=== PATIENT | male | born 1995 | race Caucasian/White ===

== ENCOUNTER 2017-11-26 11:23 | Emergency (ER) | payer OTHER ==
[2017-11-26 11:30] VITALS: BP 135/91
--- NOTE | 2017-11-26 11:40 | ER Report ---
History and Physical Time Seen By MD: 11:40 Hx. of Stated Complaint: Chest pain since 0 radiates up right arm into neck HPI/ROS CHIEF COMPLAINT: Chest pain HISTORY OF PRESENT ILLNESS: 21-year-old male patient presents to emergency room with complaint of chest pain. Patient states that he has been having chest pains proximal one 4:00 this morning. Patient states he has worsening pain when he takes a deep breath in. He denies having any nausea, vomiting or diarrhea. Patient states he go out and drink last night. Said that he had 5 or 6 drinks which is not uncommon for him. He states that when he got up this morning is having less pain. He did go fishing and had persistent painless fishing. He did come in today after finishing and one reevaluated. Patient states he tried lying down would seem to make the pain worse. Patient states that nothing seemed to make the pain better. He states that he does not have any worsening of his pain with activity. It does hurt more when he takes a deep breath in. REVIEW OF SYSTEMS: Respiratory: No cough, no dyspnea. Cardiovascular: As noted above Gastrointestinal: No vomiting, no abdominal pain. Musculoskeletal: No back pain. Allergies: Coded Allergies: No Known Drug Allergies (Unverified , 11/26/17) Home Meds Active Scripts Sucralfate (CARAFATE) 1 Gm/10 Ml Oral.susp, 1 GM PO QID, #500 ML Prov:HILARIO BERGMAN 11/26/17 Omeprazole (OMEPRAZOLE) 40 Mg Capsule.dr, 40 MG PO QDAY, #30 CAP Prov:HILARIO BERGMAN 11/26/17 Past Medical/Surgical History Patient has a past medical history of alcohol use. Patient denies any surgical history. Reviewed Nurses Notes: Yes Hx Substance Use Disorder: No Hx Alcohol Use: Yes (occ) Constitutional Vital Sign - Last 24 Hours 11/26/17 11:30 Temp 97.8 Pulse 87 Resp 16 B/P (MAP) 135/91 Pulse Ox 97 O2 Delivery Room Air Physical Exam General Appearance: The patient is alert, has no immediate need for airway protection and no current signs of toxicity. Respiratory: Chest is non tender, lungs are clear to auscultation. Cardiac: regular rate and rhythm Gastrointestinal: Abdomen is soft and non tender, no masses, bowel sounds normal. Musculoskeletal: Neck: Neck is supple and non tender. Extremities have full range of motion and are non tender. Skin: No rashes or lesions. DIFFERENTIAL DIAGNOSIS: After history and physical exam differential diagnosis was considered for chest pain including but not limited to myocardial ischemia, pericarditis pulmonary embolus, chest wall pain, pleural inflammation and pulmonary infectious causes. Medical Decision Making Data Points Result Diagram: 11/26/17 1141 11/26/17 1141 Laboratory Hematology Test 11/26/17 11:41 Red Blood Count 5.46 M/uL (4.00-5.60) Mean Corpuscular Volume 89.0 fL (80.0-96.0) Mean Corpuscular Hemoglobin 30.6 pg (26.0-33.0) Mean Corpuscular Hemoglobin Concent 34.4 g/dL (32.0-36.0) Red Cell Distribution Width 12.9 % (11.5-14.5) Mean Platelet Volume 8.4 fL (7.2-11.1) Neutrophils (%) (Auto) 70.1 % (39.4-72.5) Lymphocytes (%) (Auto) 18.8 % (17.6-49.6) Monocytes (%) (Auto) 7.3 % (4.1-12.4) Eosinophils (%) (Auto) 3.3 % (0.4-6.7) Basophils (%) (Auto) 0.5 % (0.3-1.4) Nucleated RBC Relative Count (auto) 0.1 /100WBC Neutrophils # (Auto) 10.8 K/uL (2.0-7.4) Lymphocytes # (Auto) 2.9 K/uL (1.3-3.6) Monocytes # (Auto) 1.1 K/uL (0.3-1.0) Eosinophils # (Auto) 0.5 K/uL (0.0-0.5) Basophils # (Auto) 0.1 K/uL (0.0-0.1) Nucleated RBC Absolute Count (auto) 0.01 K/uL Sodium Level 140 mmol/L (137-145) Potassium Level 3.9 mmol/L (3.5-5.0) Chloride Level 103 mmol/L (98-107) Carbon Dioxide Level 24 mmol/L (22-30) Blood Urea Nitrogen 14 mg/dl (9-21) Creatinine 0.80 mg/dl (0.66-1.25) Glomerular Filtration Rate Calc > 60.0 Random Glucose 108 mg/dl (75-110) Calcium Level 9.1 mg/dl (8.4-10.2) Total Bilirubin 0.7 mg/dl (0.2-1.3) Aspartate Amino Transf (AST/SGOT) 28 U/L (0-35) Alanine Aminotransferase (ALT/SGPT) 19 U/L (0-56) Alkaline Phosphatase 60 U/L (0-126) Troponin I < 0.012 ng/ml Total Protein 7.4 g/dl (6.3-8.2) Albumin 4.6 g/dl (3.5-5.0) Chemistry Test 11/26/17 11:41 White Blood Count 15.4 k/uL (4.5-11.0) Red Blood Count 5.46 M/uL (4.00-5.60) Hemoglobin 16.7 g/dL (14.0-18.0) Hematocrit 48.6 % (42.0-52.0) Mean Corpuscular Volume 89.0 fL (80.0-96.0) Mean Corpuscular Hemoglobin 30.6 pg (26.0-33.0) Mean Corpuscular Hemoglobin Concent 34.4 g/dL (32.0-36.0) Red Cell Distribution Width 12.9 % (11.5-14.5) Platelet Count 277 K/uL (150-450) Mean Platelet Volume 8.4 fL (7.2-11.1) Neutrophils (%) (Auto) 70.1 % (39.4-72.5) Lymphocytes (%) (Auto) 18.8 % (17.6-49.6) Monocytes (%) (Auto) 7.3 % (4.1-12.4) Eosinophils (%) (Auto) 3.3 % (0.4-6.7) Basophils (%) (Auto) 0.5 % (0.3-1.4) Nucleated RBC Relative Count (auto) 0.1 /100WBC Neutrophils # (Auto) 10.8 K/uL (2.0-7.4) Lymphocytes # (Auto) 2.9 K/uL (1.3-3.6) Monocytes # (Auto) 1.1 K/uL (0.3-1.0) Eosinophils # (Auto) 0.5 K/uL (0.0-0.5) Basophils # (Auto) 0.1 K/uL (0.0-0.1) Nucleated RBC Absolute Count (auto) 0.01 K/uL Glomerular Filtration Rate Calc > 60.0 Calcium Level 9.1 mg/dl (8.4-10.2) Total Bilirubin 0.7 mg/dl (0.2-1.3) Aspartate Amino Transf (AST/SGOT) 28 U/L (0-35) Alanine Aminotransferase (ALT/SGPT) 19 U/L (0-56) Alkaline Phosphatase 60 U/L (0-126) Troponin I < 0.012 ng/ml Total Protein 7.4 g/dl (6.3-8.2) Albumin 4.6 g/dl (3.5-5.0) EKG/Imaging EKG Interpretation 12 lead EKG: Rhythm: normal sinus rhythm with a ventricular rate of 80 bpm [place]: normal QRS: normal ST segments: normal Imaging 2 VIEWS CHEST INDICATION: Chest pain. COMPARISON: None available FINDINGS: Cardiomediastinal silhouette and pulmonary vessels within normal limits. There is no focal infiltrate or lobar consolidation. There is no pneumothorax or pleural effusion. No nodule. Upper abdomen is unremarkable. No acute bony abnormality. IMPRESSION: 1. No acute cardiopulmonary process. Report Dictated By: Arya Prakash at 11/26/2017 1:25 PM Report E-Signed By: Arya Prakash at 11/26/2017 1:26 PM ED Course/Re-evaluation ED Course Patient was admitted exam room, history and physical were obtained. Differential diagnoses were considered. On examination lungs are clear, heart is regular, abdomen soft nontender. I was unable to reproduce any of the pain the patient was having. A CBC, CMP, troponin, EKG, chest x-ray were done. Labs were unremarkable, patient did have a white count of 15,000 however I believe that is likely secondary to stress response. Chest x-ray was negative. Patient was given a dose of GI cocktail. Reevaluation patient states he had a slight improvement in his discomfort. States he does feel as if he has more acid down the back of his throat. With the patient's stating the pain seemed worse when he was lying down and not made worse with activity and believe that we are likely looking at an esophagitis likely secondary to alcohol consumption and reflux. I discussed my feelings with patient. We will go ahead and treat him with Carafate and Prilosec. Both were given here in the emergency room and discharge patient home at this time. He is follow-up with his primary care provider. He is return to emergency room if condition worsens. He is to limit his alcohol consumption until this clears. Patient verbalized understanding and agreement with plan. Decision to Disposition Date: Nov 26, 2017 Decision to Disposition Time: 13:37 Depart Departure Latest Vital Signs Vital Signs Date Time Temp Pulse Resp B/P (MAP) Pulse Ox O2 Delivery O2 Flow Rate FiO2 11/26/17 11:30 97.8 87 16 135/91 97 Room Air Impression: Primary Impression: Chest pain Condition: Improved Disposition: HOME OR SELF-CARE New Scripts Sucralfate (CARAFATE) 1 Gm/10 Ml Oral.susp 1 GM PO QID, #500 ML Prov: HILARIO BERGMAN 11/26/17 Omeprazole (OMEPRAZOLE) 40 Mg Capsule.dr 40 MG PO QDAY, #30 CAP Prov: HILARIO BERGMAN 11/26/17 Patient Instructions: Chest Pain (ED) Additional Instructions: Increase fluid intake. Get plenty of rest. Limit alcohol consumption. Follow up with your primary care provider. Return to the ER if condition worsens. Problem Qualifiers Primary Impression: Chest pain Chest pain type: other chest pain Qualified Codes: R07.89 - Other chest pain HILARIO BERGMAN Nov 26, 2017 11:40
[2017-11-26] MEDS ORDERED: NS(*) 0.9% 1000 ML BAG 1,000 ML IV ONE (11:46)
[2017-11-26] MEDS ORDERED: MAG HYD/AL HYD/SIMETH 30ML UDC PO ONE (11:50)
[2017-11-26] MEDS ORDERED: ASPIRIN 81 MG CHEW PO ONE (11:50)
[2017-11-26] MEDS ORDERED: LIDOCAINE 2% VISC SLN 15ML UDC PO ONE (11:50)
[2017-11-26 11:54] LABS: PLATELET COUNT, AUTOMATED 277 K/uL (150-450)
--- NOTE | 2017-11-26 13:31 | RADIOLOGY IMAGING REPORT ---
FACILITY: [facility] [place] PATIENT NAME: Leroy Chery : 1995 MR: [id number] V: [id number] EXAM DATE: ORDERING PHYSICIAN: HILARIO BERGMAN TECHNOLOGIST: Location: [facility] [place] Patient: Leroy Chery : 1995 Visit/Account:[id number] Date of Sevice: 11/26/2017 2 VIEWS CHEST INDICATION: Chest pain. COMPARISON: None available FINDINGS: Cardiomediastinal silhouette and pulmonary vessels within normal limits. There is no focal infiltrate or lobar consolidation. There is no pneumothorax or pleural effusion. No nodule. Upper abdomen is unremarkable. No acute bony abnormality. IMPRESSION: 1. No acute cardiopulmonary process. Report Dictated By: Arya Prakash at 11/26/2017 1:25 PM Report E-Signed By: Arya Prakash at 11/26/2017 1:26 PM [id number]
[2017-11-26] MEDS ORDERED: PANTOPRAZOLE SOD 40 MG TABEC PO ONE (13:45)
[2017-11-26] MEDS ORDERED: SUCRALFATE 1 GM TAB PO ONE (13:45)
[2017-11-26] MEDS ORDERED: SUCR1ORA17 PO (14:00)
[2017-11-26] MEDS ORDERED: OMEP40CA48 PO (14:00)
--- NOTE | 2017-11-26 17:12 | EKG ---
[place]AC[place] [facility] [place]IENT NAME: SHEILA GUZMAN : [id number] MR: [id number] V: [id number] EXAM DATE: ORDERING PHYSICIAN: HILARIO BERGMAN TECHNOLOGIST: ROSALEE Mendoza Reason : CHEST PAIN Blood Pressure : / mmHG Vent. Rate : 080 BPM Atrial Rate : 080 BPM P-R Int : 154 ms QRS Dur : 094 ms QT Int : 362 ms P-R-T Axes : 058 067 043 degrees QTc Int : 417 ms Normal sinus rhythm Normal ECG No previous ECGs available Confirmed by NAVDEEP CHAMPAGNE ([id number]) on 11/27/2017 6:38:43 AM Referred By: MADALYN Confirmed By:NAVDEEP CHAMPAGNE
== END 2017-11-26 14:10 | disposition home or self-care (01) ==
LOC: ER 11:33
DX: R07.89 Other chest pain (principal)
CPT/HCPCS: 71046; 82040; 82247; 82310; 82374; 82435; 82565; 82947; 84075; 84132; 84155; 84295; 84450; 84460; 84484; 84520; 85025; 93005; 99283

== ENCOUNTER → 2018-03-06 | Outpatient (REF) | payer OTHER ==
[~2018-03-06] MED LIST: OMEP40CA48 PO; SUCR1ORA17 PO
[2018-03-06 19:23] LABS: PLATELET COUNT, AUTOMATED 135 K/uL (150-450)
== END ==
PROVIDERS: ATTEND Family Medicine
DX: R50.9 Fever, unspecified (principal); R53.83 Other fatigue
CPT/HCPCS: 82040; 82247; 82310; 82374; 82435; 82565; 82947; 84075; 84132; 84155; 84295; 84450; 84460; 84520; 85025